=== PATIENT | male | born 1990 | race Caucasian/White ===

== ENCOUNTER 2016-09-29 18:47 | Emergency (ER) | payer OTHER ==
[2016-09-29 21:32] LABS: BASOPHIL % 0.7 % (0-2); PLATELET COUNT 276 x10^3mcL (130-400); RED CELL DISTRIBUTION WIDTH 13.6 % (11.5-14.5)
[2016-09-29 21:44] LABS: CARBON DIOXIDE 26.7 mmol/L (21-32); CHLORIDE SERUM 102 mmol/L (98-107); GFR1 > 60 mL/min; GLUCOSE SERUM 92 mg/dL (74-106); POTASSIUM SERUM 3.6 mmol/L (3.5-5.1); SODIUM SERUM 140 mmol/L (136-145)
[2016-09-29 21:50] LABS: ALBUMIN 4.4 g/dL (3.4-5.0); ALKALINE PHOSPHATASE 58 U/L (46-116); ALT/SGPT 56 U/L (16-63); AMYLASE 64 U/L (25-115); AST/SGOT 25 U/L (15-37); BILIRUBIN TOTAL 0.32 mg/dL (0.20-1.00); CHOLESTEROL 204 mg/dL (<200); HDL CHOLESTEROL 39 mg/dL (40-60); LIPASE 185 IU/L (73-393); MAGNESIUM 2.2 mg/dL (1.8-2.4); TOTAL PROTEIN, SERUM 8.3 g/dL (6.4-8.2)
[2016-09-29 22:02] LABS: UA SPECIFIC GRAVITY <=1.005 (1.005-1.035); microscopic required? YES; urine erythrocyte TRACE (NEGATIVE)
[2016-09-29 22:23] LABS: AMPHETAMINE QUAL UR NONE DETECTED (NEG <=1000)
[2016-09-29 22:25] VITALS: BP 142/86
== END 2016-09-29 23:21 | disposition home or self-care (01) ==
LOC: ED 18:47
PROVIDERS: Emergency Medicine
DX: I10 Essential (primary) hypertension (principal); E11.9 Type 2 diabetes mellitus without complications; F41.9 Anxiety disorder, unspecified; F32.9 Major depressive disorder, single episode, unspecified; F17.200 Nicotine dependence, unspecified, uncomplicated; Z71.6 Tobacco abuse counseling
CPT/HCPCS: 36415; 83880; 99406; Q0092

== ENCOUNTER 2017-03-23 13:26 | Emergency (ER) | payer OTHER ==
[~2017-03-23] VITALS: Ht 165.1 cm; Wt 89.5 kg
[2017-03-23 13:37] VITALS: Ht 165.1 cm; Wt 89.5 kg
[2017-03-23 15:02] VITALS: BP 140/87
== END 2017-03-23 15:02 | disposition home or self-care (01) ==
LOC: ED 13:26
DX: M54.9 Dorsalgia, unspecified (principal); I10 Essential (primary) hypertension; R10.9 Unspecified abdominal pain
CPT/HCPCS: J1885; Q0092

== ENCOUNTER 2018-02-19 09:51 | Emergency (ER) | payer OTHER ==
[~2018-02-19] VITALS: Ht 167.6 cm; Wt 77.1 kg
[2018-02-19 09:57] VITALS: BP 166/93; Ht 167.6 cm; Wt 77.1 kg
== END 2018-02-19 11:03 | disposition home or self-care (01) ==
LOC: ED 09:51
DX: M54.6 Pain in thoracic spine (principal); I10 Essential (primary) hypertension; F32.9 Major depressive disorder, single episode, unspecified; F41.9 Anxiety disorder, unspecified
CPT/HCPCS: 72072; J1885